=== PATIENT | male | born 1950 | race Caucasian/White ===

== ENCOUNTER 2018-05-01 12:15 | Outpatient (CLI) | payer MEDICARE, BC ==
[2018-05-01 14:18] LABS: Bilirubin Negative (Negative); Blood, Urine Trace (Negative); Clarity CLEAR (Clear); Glucose, Urine (Dipstick) Negative (Negative); Leukocyte Negative (Negative); Nitrite Negative (Negative); Protein, Urine (Dipstick) Negative (Neg-Trace); Specific Gravity, Urine 1.007 (1.002-1.036); Urobilinogen 0.2 mg/dL (0.2-1.0); pH, Urine 5.5 (5.0-9.0)
[2018-05-01 14:22] LABS: Bacteria/HPF None Seen HPF (None Seen); Hyaline Casts/LPF 0-3 HYALINE CAST LPF (0-3 Hyaline); RBC/HPF 0-3 HPF (0-3); Squamous Epithelial None Seen HPF (0-3); WBC/HPF None Seen HPF (0-3)
== END 2018-05-01 12:16 | disposition home or self-care (01) ==
LOC: LABBT 12:15
PROVIDERS: ATTEND Orthopaedic Surgery
DX: Z01.818 Encounter for other preprocedural examination (principal); M17.12 Unilateral primary osteoarthritis, left knee
CPT/HCPCS: 81001; 87081; 93005; 93010

== ENCOUNTER 2018-05-06 09:33 | Outpatient (CLI) | payer MEDICARE, BC ==
[2018-05-06 10:01] LABS: #Eosinphils 0.4 thou/uL (0.0-0.7); #Lymphocytes 1.6 thou/uL (1.20-3.40); #Monocytes 0.8 thou/uL (0.11-0.59); #Neutrophils 4.3 thou/uL (1.40-6.50); %Basophils 0.2 % (0.0-1.0); %Eosinophils 5.6 % (0.0-10.0); %Lymphocytes 22.2 % (21.0-51.0); Hemoglobin 15.5 g/dL (14.0-18.0); Mean Corpuscular HGB CONC 32.4 g/dL (32.0-36.0); Mean Corpuscular Hemoglobin 29.7 pg (27.0-31.0); Mean Corpuscular Volume 91.8 fL (78.0-98.0); Mean Platelet Volume 7.9 fL (7.4-10.4); Platelet Count 204 thou/uL (130-400); RBC Distribution Width 12.4 % (11.5-14.5); White Blood Cell (WBC) Count 7.1 thou/uL (4.8-10.8)
[2018-05-06 10:05] LABS: INR-International Normal Ratio 1.1; Prothrombin Time 14.6 SEC (12.0-14.7)
[2018-05-06 10:28] LABS: Anion Gap 14 mmol/L (10-20); BUN (Urea Nitrogen) 19 mg/dL (8.4-25.7); Calc. Creatinine Clearance 0 mL/min (70-130); Calcium 9.6 mg/dL (7.8-10.44); Carbon Dioxide 26 mmol/L (23-31); Chloride 102 mmol/L (98-107); Estimated GFR-MDRD 82; Glucose 88 mg/dL (80-115); Potassium 4.5 mmol/L (3.5-5.1); Sodium 137 mmol/L (136-145)
== END 2018-05-06 09:34 | disposition home or self-care (01) ==
LOC: LABBT 09:33
PROVIDERS: ATTEND Orthopaedic Surgery
DX: Z01.812 Encounter for preprocedural laboratory examination (principal); M17.12 Unilateral primary osteoarthritis, left knee
CPT/HCPCS: 80048; 85025; 85610; 86850; 86900; 86901

== ENCOUNTER 2018-05-13 10:13 | Day surgery (SDC) | payer MEDICARE, BC ==
[2018-05-13] MEDS ORDERED: CEFAZOLIN 2 GM/50 ML BAG ONE (10:34)
[2018-05-13] MEDS ORDERED: Tranexamic Acid 1,000 MG/10 ML VIAL ONE (10:34)
[2018-05-13] MEDS ORDERED: Sodium Chloride 0.9% 100 ML ONE (10:44)
[2018-05-13] MEDS ORDERED: Midazolam HCl 2 mg/2 ml Vial ONE (10:50)
[2018-05-13] MEDS ORDERED: Fentanyl 100 MCG/2 ML VIAL ONE ×3 (10:50→15:03)
[2018-05-13] MEDS ORDERED: Zolpidem Tartrate 5 MG TAB PO PRN ×2 (12:35→14:40)
[2018-05-13] MEDS ORDERED: HYDROcodone/Acetaminophen 10/325 mg Tablet PO PRN ×3 (12:35→14:40)
[2018-05-13] MEDS ORDERED: traMADol HCl 50 MG TAB PO PRN ×3 (12:35→14:40)
[2018-05-13] MEDS ORDERED: Ondansetron PF 4 MG/2 ML Vial IVP PRN ×2 (12:35→14:40)
[2018-05-13] MEDS ORDERED: Acetaminophen 325 MG TAB PO PRN (12:35)
[2018-05-13] MEDS ORDERED: diphenhydrAMINE 25 MG CAP PO PRN (12:35)
[2018-05-13] MEDS ORDERED: Fentanyl 100 MCG/2 ML VIAL SLOW IVP PRN ×2 (12:35)
[2018-05-13] MEDS ORDERED: Promethazine HCl 25 MG/ML VIAL IM PRN ×3 (12:35→14:40)
[2018-05-13] MEDS ORDERED: Ondansetron HCl/PF 4 MG/2 ML Vial IVP PRN (13:58)
[2018-05-13] MEDS ORDERED: Promethazine HCl 25 MG/ML VIAL SLOW IVP PRN (13:58)
[2018-05-13] MEDS ORDERED: Ropivacaine 0.2% 550 ML 550 ML NERVE BLCK SCH (14:40)
[2018-05-13] MEDS ORDERED: Fentanyl 100 MCG/2 ML VIAL IV PRN (14:42)
--- NOTE | 2018-05-13 15:05 | RAD ---
LEFT KNEE RADIOGRAPHS TWO VIEWS: Date: 05-13-18 Provided Clinical History: Post op. FINDINGS: Post-operative changes of left total knee arthroplasty are demonstrated. Post-operative soft tissue g as is seen. Surgical clips overlie the medial aspects of the thigh, knee, and proximal foreleg. No ev idence for an acute osseous abnormality. Vascular calcifications are seen. IMPRESSION: As above. POS: TPC
[2018-05-13] MEDS ORDERED: Bupivacaine 0.25% HCL 30 ML VIAL ONE (15:53)
[2018-05-13] MEDS ORDERED: Ropivacaine 0.5% HCl/PF (150 MG/30 ML VIAL) ONE (15:53)
[2018-05-13] MEDS ORDERED: Ondansetron PF 4 MG/2 ML Vial ONE (16:34)
[2018-05-13] MEDS ORDERED: Ketorolac Tromethamine 30 MG/ML VIAL ONE (16:34)
[2018-05-13] MEDS ORDERED: PROPOFOL 200 MG/20 ML VIAL ONE (16:34)
[2018-05-13] MEDS: Dronedarone HCl 400 MG TAB PO SCH (16:38)
[2018-05-13] MEDS: Sodium Chloride 0.9% 1,000 ML IV SCH (16:46)
[2018-05-13] MEDS ORDERED: CEFAZOLIN 2 GM/50 ML BAG IVPB SCH (18:00)
[2018-05-13] MEDS ORDERED: Ketorolac Tromethamine 30 MG/ML VIAL IVP SCH (18:00)
[2018-05-13 19:38] VITALS: BMI 21.6
[2018-05-13] MEDS: Ketorolac Tromethamine 30 MG/ML VIAL IVP SCH (20:58)
[2018-05-13] MEDS: Ferrous Gluconate 324 MG TAB PO SCH (20:59)
[2018-05-13] MEDS: CEFAZOLIN 2 GM/50 ML BAG IVPB SCH (20:59)
[2018-05-13] MEDS: Aspirin 81 mg Enteric Coated Tablet PO SCH (20:59)
[2018-05-13] MEDS: Simvastatin 40 MG TAB PO SCH (20:59)
[2018-05-13] MEDS: Ezetimibe 10 MG TAB PO SCH (20:59)
[2018-05-13] MEDS: Senokot S 8.6-50 MG TAB PO SCH (21:02)
[2018-05-14] MEDS: Sodium Chloride 0.9% 1,000 ML IV SCH ×3 (00:05→18:49)
[2018-05-14] MEDS: HYDROcodone/Acetaminophen 10/325 mg Tablet PO PRN ×4 (00:08→23:50)
[2018-05-14] MEDS: Ketorolac Tromethamine 30 MG/ML VIAL IVP SCH ×4 (02:23→20:46)
[2018-05-14] MEDS: CEFAZOLIN 2 GM/50 ML BAG IVPB SCH (04:05)
[2018-05-14 05:44] LABS: Hemoglobin 12.2 g/dL (14.0-18.0); Mean Corpuscular HGB CONC 33.7 g/dL (32.0-36.0); Mean Corpuscular Hemoglobin 30.7 pg (27.0-31.0); Mean Corpuscular Volume 91.1 fL (78.0-98.0); Mean Platelet Volume 7.8 fL (7.4-10.4); Platelet Count 164 thou/uL (130-400); RBC Distribution Width 12.4 % (11.5-14.5); Red Blood Cell (RBC) Count 3.98 mill/uL (4.70-6.10); White Blood Cell (WBC) Count 8.9 thou/uL (4.8-10.8)
--- NOTE | 2018-05-14 07:31 | OP ---
DATE OF PROCEDURE: 05/13/2018 TITLE OF PROCEDURE: Total knee arthroplasty on the left using a [place] Triathlon 5 femur, 4 tibia, 9 mm CSX3 polyethylene, and A29 patella. SURGEON: Nicholas Cope M.D. GROUNDSKEEPING MAINTENANCE: Dane Estrada PA-C. BLOOD LOSS: Minimal. SPECIMEN: None. DRAINS: None. COMPLICATIONS: None. TOURNIQUET TIME: 47 minutes. PROCEDURE IN DETAIL: After informed consent was obtained in the preoperative holding area. The reyna ent was taken to the operative suite where general anesthesia was induced. Once adequate level of ge neral anesthesia was obtained, the patient was positioned and a well-padded tourniquet was placed amy und the left proximal thigh. The left lower extremity was then prepped and draped in the usual steri le fashion. Prior to exsanguination, a time out was called and all members of the surgical team agre ed upon site, surgeon, and patient. The extremity was then exsanguinated and the tourniquet was rais ed. A midline longitudinal incision was then made directly over the patella extending two fingerbrea dths above the superior pole of the patella and two fingerbreadths inferior to the inferior patellar pole of the patella. Deeper subcutaneous layers were dissected sharply and local bleeding was contro lled with Bovie electrocautery. A quad tendon longitudinal split was then made sharply and a median parapatellar arthrotomy was carried out both sharp and with Bovie electrocautery, carried down to one fingerbreadth medial to the tibial tubercle. The knee was then placed into flexion and the patella was everted nicely, and a copious fat pad ectomy was performed allowing for greater exposure of the t ibia. The computer-assisted distal femoral fiducial was then placed and pinned firmly, and the dista l femoral cutting guide was pinned firmly into place. The oscillating saw was then used to remove th e appropriate amount of bone. The 4-in-1 cutting block was then placed on the distal femur and the o scillating saw was used to remove the appropriate amount of bone off of the anterior, posterior, and chamfer cuts. After completion of bone cuts, the anterior cruciate ligament was resected sharply and the posterior cruciate ligament retractor was placed and the tibia was subluxed for better exposure. Partial meniscectomies were carried out, and the tibial computer-assisted fiducial was pinned, and the cutting guide was placed. Oscillating saw was then used to remove the bone with Hohmann retracto rs used to take care and protect the collateral ligaments. After the tibial resection was performed, a laminar cellular tower climber was placed in between the freshened bone cuts. The knee placed at 90 degrees and further bilateral meniscectomies were carried out, and the curved osteotome and curettage was used t o remove any excess bone spurs in the posterior compartment. The trial femoral component, tibial bas eplate were placed with the appropriate polyethylene trial insert with an appropriate polyethylene sp acer and patellar button. The knee was taken through full range of motion with flexion and extension from 0-90 degrees and patellar broach squarely in the trochlea without any squinting or subluxation noted. The knee was also stable to varus and valgus stressing at 0, 15, 45, and 90 degrees of flexio n. The drawer was negative. All trial components were then removed and the keel punch was used to pr ovide the appropriate defect in the tibia with a mallet. The freshened bone cuts were copiously irri gated with pulsatile lavage of about 1-1/2 liters to remove all excess debris. The freshened bone cu ts were then dried and with suction and lap sponge. The knee was placed in flexion and retractors we re placed to provide access to all bone cuts. Tobramycin impregnated methyl methacrylate cement was then placed on the freshened bone cuts and implants which were malleted firmly into place. Curettage and [place] elevators were used to remove any excess bone cement. The knee was placed into full exten nikhil and the patellar button was placed under compression, and the cement was allowed to cure. Once completed, the components were again taken through full range of motion and copious irrigation of the knee was carried out with another liter of normal saline. All components were inspected fully with full range of motion and varus and valgus stressing. There was no laxity noted and full extension was observed clinically. Primary closure was accomplished with #2 interrupted Vicryl stitch of the arth rotomy defect. This was oversewn with a #2 running Quill barbed stitch. The gravitational platelet system was then injected into the arthrotomy prior to closure. The subcutaneous layer was then close d with a running 0 barbed Monocryl stitch and skin closure accomplished with a running subcuticular 3 -0 Monocryl barbed Quill stitch and augmented with cement on the skin. Tourniquet was lowered. Good spontaneous return of distal pulses was noted clinically and a sterile dressing was applied to the i ncision. The procedure was terminated without any complications. The patient was awakened in the op erative suite and the tourniquet was removed, and the patient was taken to the recovery room in stabl e condition.
[2018-05-14] MEDS: Fish Oil 1,000 MG CAP PO SCH (08:22)
[2018-05-14] MEDS: Cyanocobalamin (Vitamin B-12) 1,000 MCG TAB PO SCH (08:23)
[2018-05-14] MEDS: Senokot S 8.6-50 MG TAB PO SCH ×2 (08:23→20:47)
[2018-05-14] MEDS: Ferrous Gluconate 324 MG TAB PO SCH ×2 (08:23→20:47)
[2018-05-14] MEDS: Dronedarone HCl 400 MG TAB PO SCH ×2 (08:23→17:36)
[2018-05-14] MEDS: Multivitamin W/ Minerals 1 TAB PO SCH (08:23)
[2018-05-14] MEDS: Aspirin 81 mg Enteric Coated Tablet PO SCH ×2 (08:23→20:47)
[2018-05-14] MEDS: Cholecalciferol (Vitamin D3) 400 UNITS TAB PO SCH (08:29)
[2018-05-14] MEDS ORDERED: CHOLECALCIFEROL 800 UNIT PO SCH (09:00)
[2018-05-14] MEDS ORDERED: Aspirin 81 mg Enteric Coated Tablet PO SCH (09:00)
--- NOTE | 2018-05-14 15:43 | CON ---
DATE OF CONSULTATION: 05/14/2018 PRIMARY CARE PHYSICIAN: Dr. Castillo. REASON FOR CONSULTATION: For the aid and medical management. REASON FOR ADMISSION: Left total knee replacement. HISTORY OF PRESENT ILLNESS: Mr. Abernathy is a pleasant 67-year-old gentleman, who has a history of coronary artery disease, osteoarthritis, atrial fibrillation, and he had severe pain in his left knee with swelling off and on, and he was admitted for an elective left total knee replacement. He currently is postop and he has no complaints. He says the postop pain is tolerable. He denies having any chest pain or shortness of breath. No PND. No orthopnea. No nausea. No vomiting. He does not feel dizzy. No lightheadedness. Prior to surgery, he had no problems with swelling in his calves or legs. He says he was recently started on anticoagulation due to finding of atrial fibrillation recently after he had his pacemaker placed. REVIEW OF SYSTEMS: All systems are reviewed and are negative except for that mentioned in the history of present illness. PAST MEDICAL HISTORY: Significant for coronary artery disease, osteoarthritis, atrial fibrillation, and complete heart block. PAST SURGICAL HISTORY: He has had a lumbar laminectomy, CABG, bypass surgery, carpal tunnel release, bilateral rotator cuff repair, and pacemaker. FAMILY HISTORY: Significant for heart disease in his father. Mother had hypertension and cerebrovascular disease. SOCIAL HISTORY: He is . He is a nonsmoker and nondrinker. He would like to be a full code and his , Devorah, is his medical decision maker. ALLERGIES: NO KNOWN DRUG ALLERGIES. CURRENT MEDICATIONS: Include: 1. Eliquis 5 mg twice a day. 2. Aspirin 81 mg daily. 3. Vitamin D3 of 800 units daily. 4. Vitamin B12 p.o. daily. 5. Multaq 400 mg twice a day. 6. Zetia and simvastatin one tablet nightly . 7. [place]-3 fatty acids one tablet daily. PHYSICAL EXAMINATION: GENERAL: He is alert and oriented. He appears to be in no acute distress. He is well developed and well nourished. VITAL SIGNS: Blood pressure is 110/65, heart rate 69, respiratory rate is 16, and temperature is 98.7. HEENT: Pupils are equal, round, and reactive. Extraocular muscles are intact. His sclerae are anicteric. Throat, there is no erythema, no exudate. NECK: No adenopathy. No bruits. LUNGS: Clear to auscultation. There is no wheezing, no rales, no rhonchi. CARDIOVASCULAR: He has a normal S1 and S2. There is no S3 or S4. No murmurs, clicks, or rubs. ABDOMEN: Non-obese. It is soft. It is nontender and nondistended. Positive for bowel sounds. There is no rebound. No guarding. No organomegaly. EXTREMITIES: There is no clubbing or cyanosis. No edema. The left knee is in a dressing. He has good dorsalis pedis pulses. NEUROLOGIC: The exam is grossly nonfocal. LABORATORY DATA: CBC; white blood cell count is 8.9, hemoglobin is 12.2, and hematocrit is 36.2, and platelet count is 164. He had records from Dr. White for his cardiac clearance, which was reviewed. ASSESSMENT: This is a pleasant 67-year-old gentleman, who is being admitted for a left total knee replacement. We have been consulted for medical management. 1. With respect to coronary artery disease, this appears to be clinically stable. His usual home medications will be restarted. 2. Atrial fibrillation. He is currently clinically in sinus rhythm. We will continue Multaq; however, Eliquis is on hold due to the recent surgery. This can be restarted at the discretion of Orthopedics. Otherwise, we will be happy to follow along with you. Job ID: [id number]
[2018-05-14] MEDS: Ezetimibe 10 MG TAB PO SCH (20:47)
[2018-05-14] MEDS: Simvastatin 40 MG TAB PO SCH (20:48)
[2018-05-15] MEDS: Ketorolac Tromethamine 30 MG/ML VIAL IVP SCH ×2 (02:51→08:43)
[2018-05-15] MEDS: Sodium Chloride 0.9% 1,000 ML IV SCH (04:04)
[2018-05-15 05:43] LABS: Hemoglobin 11.3 g/dL (14.0-18.0); Mean Corpuscular HGB CONC 34.4 g/dL (32.0-36.0); Mean Corpuscular Hemoglobin 31.5 pg (27.0-31.0); Mean Corpuscular Volume 91.6 fL (78.0-98.0); Mean Platelet Volume 8.1 fL (7.4-10.4); Platelet Count 150 thou/uL (130-400); RBC Distribution Width 12.4 % (11.5-14.5); White Blood Cell (WBC) Count 9.3 thou/uL (4.8-10.8)
[2018-05-15] MEDS: Dronedarone HCl 400 MG TAB PO SCH (08:43)
[2018-05-15] MEDS: Cyanocobalamin (Vitamin B-12) 1,000 MCG TAB PO SCH (08:44)
[2018-05-15] MEDS: Ferrous Gluconate 324 MG TAB PO SCH (08:44)
[2018-05-15] MEDS: Cholecalciferol (Vitamin D3) 400 UNITS TAB PO SCH (08:44)
[2018-05-15] MEDS: Aspirin 81 mg Enteric Coated Tablet PO SCH (08:44)
[2018-05-15] MEDS: Fish Oil 1,000 MG CAP PO SCH (08:44)
[2018-05-15] MEDS: Multivitamin W/ Minerals 1 TAB PO SCH (08:44)
[2018-05-15] MEDS: Senokot S 8.6-50 MG TAB PO SCH (08:44)
[2018-05-15] MEDS: HYDROcodone/Acetaminophen 10/325 mg Tablet PO PRN (10:36)
[2018-05-15 10:56] VITALS: BP 141/65; TEMP 98.5
--- NOTE | 2018-05-15 13:28 | PDOC.PN ---
- Subjective Encounter Start Date: 05/15/18 Encounter Start Time: 13:26 Mr. Abernathy was seen today in follow-up of medical management post Knee replacement. He does not have any complaints. He denies chest pain or difficulty breathing. He has been up to walk without problems. - Objective MAR Reviewed: Yes Vital Signs & Weight: Vital Signs (12 hours) Temp Pulse Resp BP BP Pulse Ox 05/15/18 10:55 98.5 F 72 16 141/65 H 98 05/15/18 07:37 94 L 05/15/18 07:26 98.4 F 69 16 141/79 H 94 L 05/15/18 03:16 98.7 F 73 18 134/77 92 L Weight Admit Weight 155 lb Weight 155 lb I&O: 05/14/18 05/15/18 05/16/18 06:59 06:59 06:59 Intake Total 850 1580 Output Total 1925 Balance 850 -345 Result Diagrams: 05/15/18 04:43 Phys Exam - Physical Examination Respiratory: no wheezing, no rales, no rhonchi, clear to auscultation bilateral Cardiovascular: RRR, no significant murmur, no rub Gastrointestinal: soft, non-tender, no distention, positive bowel sounds Musculoskeletal: no edema Dx/Plan (1) Coronary artery disease Code(s): I25.10 - ATHSCL HEART DISEASE OF [place] CORONARY ARTERY W/O ANG PCTRS Status: Chronic (2) Atrial fibrillation Code(s): I48.91 - UNSPECIFIED ATRIAL FIBRILLATION Status: Chronic (3) Status post total left knee replacement Code(s): Z96.652 - PRESENCE OF LEFT ARTIFICIAL KNEE JOINT Status: Acute - Plan * CAD- stable * AFIB- clinically in sinus- stable * Disposition as per Orthopedic surgery.
== END 2018-05-15 13:51 | disposition home or self-care (01) ==
LOC: SDC 10:13 → SJJU 16:02 → SDC 05-15 13:51
PROVIDERS: ATTEND Orthopaedic Surgery
PROC: 0SRD0J9 Replacement of Left Knee Joint with Synthetic Substitute, Cemented, Open Approach (ICD-10-PCS; principal; 2018-05-13)
DX: M17.0 Bilateral primary osteoarthritis of knee (principal); I25.10 Atherosclerotic heart disease of native coronary artery without angina pectoris; I48.91 Unspecified atrial fibrillation; Z79.01 Long term (current) use of anticoagulants; Z79.82 Long term (current) use of aspirin; Z79.899 Other long term (current) drug therapy; Z95.0 Presence of cardiac pacemaker; Z95.1 Presence of aortocoronary bypass graft; Z98.890 Other specified postprocedural states
CPT/HCPCS: 27447; 73560; 85027; 97116 ×3; 97139 ×2; 97150 ×2; 97530 ×2; A4306; C1713; C1776; G8978; G8979; 36415; J0131; J1885; J2250; J2405; J2704; J2795; J3010; J3370; J7050; S0020